=== PATIENT | female | born 1985 | race Caucasian/White ===

== ENCOUNTER 2017-04-09 14:32 | Emergency (ER) | payer OTHER ==
[~2017-04-09] VITALS: Ht 154.9 cm; Wt 57.6 kg
[2017-04-09 14:56] VITALS: BP 113/64
[2017-04-09] MEDS ORDERED: TETANUS-DIPTH-ACEL PERTUSSIS 0.5ML SYRG IM ONE ×2 (15:33→15:45)
== END 2017-04-09 15:47 | disposition home or self-care (01) ==
LOC: ER 14:37
DX: S61.411A Laceration without foreign body of right hand, initial encounter (principal); W26.9XXA Contact with unspecified sharp object(s), initial encounter; Y93.89 Activity, other specified; Y99.8 Other external cause status; Y92.89 Other specified places as the place of occurrence of the external cause
CPT/HCPCS: 12002; 90471; 90715

== ENCOUNTER 2021-10-19 04:49 | Emergency (ER) | payer MEDICAID, OTHER ==
[~2021-10-19] VITALS: Ht 154.9 cm; Wt 59.0 kg
[2021-10-19] MEDS ORDERED: AMOX-277 PO (09:12)
[2021-10-19] MEDS ORDERED: ACET-1158 PO (09:12)
[2021-10-19] MEDS ORDERED: MECL12.514 PO (09:12)
[2021-10-19 09:54] VITALS: BP 138/66
== END 2021-10-19 10:15 | disposition home or self-care (01) ==
LOC: ER 04:49
DX: H66.91 Otitis media, unspecified, right ear (principal); Z79.2 Long term (current) use of antibiotics; Z79.899 Other long term (current) drug therapy